=== PATIENT | male | born 1975 | race Caucasian/White ===

== ENCOUNTER 2017-02-05 17:59 | Emergency (ER) | payer BC ==
[2017-02-05 18:54] VITALS: BP 139/95
[2017-02-05] MEDS ORDERED: Tetracaine 0.5% OPTH.SOL 4 ML* 1 DROP BTL RIGHT EYE ONE (18:58)
[2017-02-05] MEDS ORDERED: Fluorescein Sodium TOPICAL* 1 MG TEST OPHTHALMIC ONE (18:59)
--- NOTE | 2017-02-05 20:09 | UC ---
Eye Complaint HPI - HPI Summary HPI Summary: FB sensation in his right eye after grinding last pm. Is worried he might have aluminum FB in his eye. - History of Current Complaint Chief Complaint: UCEye Stated Complaint: RIGHT EYE FB Time Seen by Provider: 02/05/17 20:03 Hx Obtained From: Patient Onset/Duration: Sudden Onset, Lasting Hours, Still Present Timing: Constant Severity Initially: Moderate Severity Currently: Moderate Pain Intensity: 3 Pain Scale Used: 0-10 Numeric Location of Injury: Conjunctiva Character: Sharp Aggravating Factor(s): Nothing Alleviating Factor(s): Nothing Associated Signs And Symptoms: Positive: Drainage (Clear) Related History: Foreign Body - Risk Factors Penetrating Injury Risk Factor: Grinding Acute Glaucoma Risk Factors: Negative Optic Artery Occlusion Risk Factors: Negative - Allergies/Home Medications Allergies/Adverse Reactions: Allergies Allergy/AdvReac Type Severity Reaction Status Date / Time No Known Allergies Allergy Verified 02/05/17 18:54 PMH/Surg Hx/FS Hx/Imm Hx Cardiovascular History Of: Reports: Hypertension - Surgical History Surgical History: Yes Surgery Procedure, Year, and Place: left knee/torn meniscus - Family History Known Family History: Positive: Hypertension - Social History Lives: With Family Alcohol Use: Daily Alcohol Amount: 3-4 beers Substance Use Type: None Smoking Status (MU): Never Smoked Tobacco Review of Systems Constitutional: Negative Skin: Negative Eyes: Drainage, Eye Redness ENT: Negative Respiratory: Negative Cardiovascular: Negative Gastrointestinal: Negative Genitourinary: Negative Motor: Negative Neurovascular: Negative Musculoskeletal: Negative Neurological: Negative Psychological: Negative All Other Systems Reviewed And Are Negative: Yes Physical Exam Triage Information Reviewed: Yes Appearance: Well-Appearing, Well-Nourished, Pain Distress Vital Signs: Initial Vital Signs Temp 98.3 F 02/05/17 18:47 Pulse 68 02/05/17 18:47 Resp 16 02/05/17 18:47 BP 139/95 02/05/17 18:47 Pulse Ox 99 02/05/17 18:47 visual acuity noted worse in UNaffected eye. Verified with RN. VA was worse in unaffected eye. Vital Signs Reviewed: Yes Eyes: Positive: Conjunctiva Inflamed ENT: Positive: Normal ENT inspection, Pharynx normal, Nasal drainage Neck exam: Normal Respiratory: Positive: No respiratory distress Cardiovascular: Positive: RRR, Pulses Normal, Brisk Capillary Refill Musculoskeletal: Positive: Strength Intact, ROM Intact Neurological: Positive: Alert, Muscle Tone Normal Psychological Exam: Normal Skin Exam: Normal Eye Complaint Course/Dx - Course Course Of Treatment: VA noted, and note that RN recorded them correctly. Unaffected eye has worse vision. No FB noted with fluor strip staining. Small corneal abrasion noted. Will treat with antibiotics. - Differential Dx/Diagnosis Differential Diagnosis/HQI/PQRI: Conjunctivitis, Corneal Abrasion, Foreign Body , Penetrating Injury Provider Diagnoses: corneal abrasion, right eye Discharge - Discharge Plan Condition: Stable Disposition: HOME Prescriptions: Tobramycin 0.3% OPHTH.LILLIANA* 2 drop RIGHT EYE Q4H #1 btl Patient Education Materials: Corneal Abrasion (ED) Referrals: YOGI Myers [Primary Care Provider] - Chayito Portillo MD [Medical Doctor] - (1-2 days if no improvement )
== END 2017-02-05 20:43 | disposition home or self-care (01) ==
LOC: UCCORT 17:59
DX: S05.01XA Injury of conjunctiva and corneal abrasion without foreign body, right eye, initial encounter (principal); X58.XXXA Exposure to other specified factors, initial encounter; Y93.89 Activity, other specified; Y92.9 Unspecified place or not applicable; I10 Essential (primary) hypertension
CPT/HCPCS: 99212; A9270-GY; G0463